=== PATIENT | male | born 1955 | race Caucasian/White ===

== ENCOUNTER 2019-06-26 12:58 | Inpatient (IN) | payer OTHER ==
--- NOTE | 2019-06-19 08:52 | HP ---
HISTORY AND PHYSICAL: DATE OF ADMISSION/SURGERY: 06/26/19 DATE OF OFFICE VISIT: 06/15/19 SURGEON: Kasie Louie MD * (DICTATED BY GENARO GARCIA) PROCEDURE: Right total hip arthroplasty. CHIEF COMPLAINT: Right hip pain. HISTORY OF PRESENT ILLNESS: Mr. Arzate is a 64-year-old gentleman with continued complaints of right knee pain. He has failed conservative treatment and elected to proceed with a right total hip arthroplasty. PAST MEDICAL HISTORY: High cholesterol, mitral valve repair, and sleep apnea. PAST SURGICAL HISTORY: Mitral valve repair, left wrist surgery, and appendectomy. CURRENT MEDICATIONS: 1. Aspirin 81 mg a day. 2. Multivitamin. 3. Pravastatin 40 mg a day. 4. Vitamin D. 5. Fish oil. 6. Vitamin C. 7. Celebrex as needed. ALLERGIES: To PENICILLIN and ERYTHROMYCIN. FAMILY HISTORY: Cancer. SOCIAL HISTORY: He is a 64-year-old gentleman, lives with his . He does not smoke or use drugs. He uses occasional alcohol. REVIEW OF SYSTEMS: A complete 14-point review of systems was reviewed with the patient, and was all negative or noncontributory. He denies history of DVT, PE , hepatitis, HIV, or anesthesia problems. PHYSICAL EXAMINATION GENERAL: He is well developed, well nourished, in no acute distress. VITAL SIGNS: He stands 70 inches tall, weighs 231 pounds. His blood pressure is 122/82, his heart rate is 72. HEENT: Normocephalic, atraumatic. NECK: Supple. No palpable lymph nodes. PULMONARY: The lungs are clear to auscultation bilaterally. CARDIO: Regular rate and rhythm. Strong S1, S2. ABDOMEN: Soft, nontender, nondistended. NEUROLOGICAL: He is alert and oriented x3. MUSCULOSKELETAL: Right lower extremity: The skin is intact. There are no open wounds or abrasions. He walks with an antalgic type gait favoring his right hip. He has 80 degrees of hip flexion reproducing groin pain. He lacks 5 degrees from neutral, has 0 degree of internal rotation, 30 degrees of external rotation. He has a 2+ dorsalis pedis pulse. He is able to dorsiflex and plantarflex and has intact sensation. ASSESSMENT AND PLAN: Mr. Arzate is a 64-year-old gentleman with end-stage osteoarthritis of the right hip. He has failed conservative treatment and elected to proceed with a right total hip arthroplasty. The surgery is scheduled for 06/26/[address] Louie discussed the risks and benefits of the surgery at today's visit and all of his questions were answered. He will follow up with Dr. Louie 2 weeks after the surgery. GENARO GARCIA [id number]/[facility] #: [id number] MTDRobert
[~2019-06-26 12:58] MED LIST: Acetaminophen TAB* 325 MG PO ONE; Buffered Lidocaine 1% SYRIN* 1 ML/SYRINGE INTRADERM ONE; Famotidine IV* 10 MG/ML 2 ML (20 mg) IV ONE; Gabapentin CAP(*) 300 MG PO ONE; Tranexamic Acid 1,000 MG in NS 0.9% 50 ML* (outpatient use) IV SCH; celeCOXIB CAP* 200 MG PO ONE
--- OUTSIDE RECORDS SUMMARY | 2019-06-26 13:02 | XMS REPORT | Continuity of Care Document ---
:1955 External Reference #:[id number] Author Name Kasie Louie M.D. 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 Onset: region and thigh Social History Type Date Description Comments Sex Unknown ETOH Use Currently consumes alcohol Tobacco Use Start: Unknown Patient has never smoked Smoking Status Reviewed: 06/15/19 Patient has never smoked Exercise Type/Frequency Exercises regularly Allergies, Adverse Reactions, Alerts Active Allergies Reaction Severity Comments Date Penicillin 09/29/2018 Erythromycin 09/29/2018 Medications Active Medications SIG Qnty Indications Ordering Provider Date Aspirin 81 Low Dose 1 by mouth every Unknown 81mg other day Che[place]abs Pravastatin Sodium take one tablet 90tabs Unknown 40mg by mouth every Tablets evening Qunol Ultra Coq10 Unknown Capsules Fish Oil 2 caps by mouth Unknown 1200mg Capsules twice daily DR Vitamin C 1 by mouth every Unknown 1000mg Tablets day Celecoxib Unknown 100mg Capsules Multivitamin Adult 1 by mouth every Unknown day Tablets Medications Administered in Office Medication SIG Qnty Indications Ordering Provider Date Depomedrol 40MG Kasie Louie M.D. 09/29/2018 Injection Immunizations Description No Information Available Vital Signs Date Vital Result Comment 06/15/2019 1:31pm Height 70 inches 5'10" Weight 231.00 lb Heart Rate 72 /min BP Systolic 122 mmHg BP Diastolic 82 mmHg Respiratory Rate 16 /min Body Temperature 97.3 F Pain Level 3 BMI (Body Mass Index) 33.1 kg/m2 10/20/2018 1:44pm Height 70 inches 5'10" Weight 232.00 lb BP Systolic 126 mmHg BP Diastolic 80 mmHg Body Temperature 99.2 F BMI (Body Mass Index) 33.3 kg/m2 Results Description No Information Available Procedures Description No Information Available Medical Devices Description No Information Available Encounters Description No Information Available Assessments Date Code Description Provider 06/15/2019 M25.551 Pain in right hip Kasie Louie M.D. 06/15/2019 M16.11 Unilateral primary osteoarthritis, right hip Kasie Louie M.D. 05/14/2019 M25.551 Pain in right hip Kasie Louie M.D. 05/14/2019 M16.11 Unilateral primary osteoarthritis, right hip Kasie Louie M.D. 05/11/2019 M25.551 Pain in right hip Kasie Louie M.D. 05/11/2019 M16.11 Unilateral primary osteoarthritis, right hip Kasie Louie M.D. Plan of Treatment Future Appointment(s):07/09/2019 2:45 pm - Kasie Louie M.D. at [facility] at Vmnyvp5506/26/2019 1:30 pm - Khris Bay PA-C at [facility] at Hjkzez3106/26/2019 1:30 pm - GENARO Saleem at [facility] at Vwpzxo0406/26/2019 1:30 pm - Kasie Louie M.D. at [facility] at Axtkuq2106/15/2019 - Kasie Louie M.D.M25.551 Pain in right hipFollow up:Follow up: 2 weeks after xrdfftiU04.11 Unilateral primary osteoarthritis, right hip Functional Status Description No Information Available Mental Status Description No Information Available Referrals Description No Information Available
--- OUTSIDE RECORDS SUMMARY | 2019-06-26 13:02 | XMS REPORT | Continuity of Care Document ---
:1955 External Reference #:[id number] Author Name Ursula Moreno MD Address [address] [place] [id number] Problems Active Problems Provider Date Pure hypercholesterolemia Onset: 07/14/2007 Obstructive sleep apnea syndrome Ursula Moreno MD Onset: 09/29/2010 Mixed hyperlipidemia Ursula Moreno MD Onset: 03/14/2017 Social History Type Date Description Comments Sex Unknown Tobacco Use Start: Unknown End: Current Pipe Smoker, Smokes 5 QUIT!! Unknown Pipes Daily ETOH Use Occasionally consumes alcohol Recreational Drug Use Denies Drug Use Tobacco Use Start: Unknown End: Patient is a former smoker Unknown Smoking Status Reviewed: 06/11/19 Patient is a former smoker Allergies, Adverse Reactions, Alerts Active Allergies Reaction Severity Comments Date Erythromycin 02/10/2006 PCN 02/10/2006 Medications Active Medications SIG Qnty Indications Ordering Provider Date Pravastatin Sodium take 1 tablet by 30tabs E78.2 Ursula Moreno 2018 40mg mouth at bedtime MD Elena Tablets Baclofen 1-2 every night 30tabs M25.512 Ursula Moreno 04/17/2019 10mg Tablets at bedtime as MD Elena needed muscle spasm Celecoxib take one capsule 60caps M16.11 Ursula Moreno 10/06/2018 100mg by mouth twice a MMD Capsules day as needed Shingrix 2 shot series 2units Z00.00 Ursula Moreno 10/06/2018 50mcg/0.5ML MD Elena Suspension Rec Co-Enzyme Q-10 1 po qd E78.2 Ursula Moreno 12/29/2015 100mg MD Elena Capsules Cpap dx: ashwini G47.33 Ursula Moreno 04/20/2010 9CM MD Elena Vitamin D 1 po qd 90caps E55.9 Ursula Moreno 09/16/2009 1000Unit MD Elena Capsules Aspirin 1 PO qod E78.2 Tiffanie Ursula 01/23/2007 81mg Tablets MD Elena History Medications Livalo 1 by mouth 30tabs E78.2 [facility] 02/06/2019 - 2mg Tablets every day MD Elena 02/06/2019 Pravastatin Sodium take 1 tablet 30tabs E78.2 [facility] 02/06/2019 - 20mg by mouth at MD Elena 04/17/2019 Tablets bedtime. Immunizations CPT Code Status Date Vaccine Lot # [id number] Given 06/11/2019 Influenza Vac, Quadrivalent, Split, 0.5mL Dosage, [id number] Im Use 03263 Given 07/06/2018 Influenza Vac, Quadrivalent, Split, 0.5mL Dosage, Im Use 14649 Given 07/15/2017 Influenza Vac, Quadrivalent, Split, 0.5mL Dosage, [id number] Im Use 86548 Given 07/09/2016 Influenza Vac, Quadrivalent, Split, 0.5mL Dosage, [id number] Im Use 35458 Given 04/06/2016 Tdap (Adacel) Ages 7 And Above Only [id number] 07262 Given 10/14/2015 Influenza Vac, Quadrivalent, Split, 0.5mL Dosage, [id number] Im Use Q2038 Given 09/11/2012 Fluzone Trivalent Immunization [id number] Q2038 Given 10/01/2011 Fluzone Trivalent Immunization [id number] 06677 Given 09/29/2010 Pneumococcal 23 Immunization Adult Or [id number] Immunosuppressed Patient 51094 Given 07/14/2007 Afluria Or Fluvirin Flu Vac Intramuscular [id number] 34009 Given 07/25/2006 Afluria Or Fluvirin Flu Vac Intramuscular [id number] 05839 Given 02/10/2006 Tetanus And Diptheria Toxoid 7 Years And Older [id number] Preserv Free 23156 Given Unknown Influenza Vac, Quadrivalent, Split, 0.5mL Dosage, Im Use Vital Signs Date Vital Result Comment 06/11/2019 1:44pm Weight 234.00 lb Heart Rate 76 /min BP Systolic 124 mmHg BP Diastolic 60 mmHg Height 70 inches 5'10" BMI (Body Mass Index) 33.6 kg/m2 04/17/2019 9:28am Weight 232.00 lb Heart Rate 64 /min BP Systolic 124 mmHg BP Diastolic 66 mmHg Height 70 inches 5'10" BMI (Body Mass Index) 33.3 kg/m2 Results Test Date Facility Test Result H/L Range Note Laboratory test 04/09/2019 [facility] Vitamin D 25 40 ng/mL 30-100 1 finding Hydroxy Magnesium 2.2 mg/dL 1.5-2.7 Comprehensive Met Panel-[facility] 04/09/2019 [facility] Sodium 142 mmol/L 135- 146 2 Potassium 5.0 mmol/L 3.5-5.2 Chloride# 106 mmol/L 97-110 3 Carbon Dioxide 26 mmol/L 24-34 Calcium 9.7 mg/dL 8.5-10.5 4 Glucose 82 mg/dL 70-105 BUN 20 mg/dL 6-26 Creatinine 1.0 mg/dL 0.5-1.4 Total Protein 6.6 g/dL 6.0-8.0 Albumin 4.1 g/dL 3.6-4.9 Globulin 2.5 g/dL 2.0-3.5 A/G Ratio 1.6 Ratio 1.0-2.2 Total Bilirubin 0.7 mg/dL 0.1-1.3 Alkaline Phosphatase 53 U/L 24-140 Alt 20 U/L 3-42 Ast 16 U/L 8-42 Anion Gap 10 mmol/L 5-15 5 Female Egfr 57 Low >60 6 Male Egfr 76 >60 7 Lipid 04/09/2019 [facility] Cholesterol 232 mg/dL High 50-199 Triglycerides 328 mg/dL High 30-200 HDL 43 mg/dL 29-71 8 Chol/ HDL Ratio 5.4 ratio 4.0-6.7 VLDL 66 mg/dL High 2-29 LDL (Calc) 124 mg/dL High 20-99 9 CBC with Auto Diff-[facility] 04/09/2019 [facility] WBC 5.3 K/uL 4.1-11.0 RBC 4.80 M/uL 4.60-6.10 Hemoglobin 15.6 gm/dL 13.5-18.0 Hematocrit 45.3 % 41.0-53.0 MCV 94.2 fL 80.0-97.0 MCH 32.4 pg High 27.0-32.0 MCHC 34.4 g/dL 32.0-36.0 RDW 12.9 % 11.5-14.5 PLT Count 129 K/ul Low 140-400 MPV 9.9 FL 7.1-10.7 Neutrophil 58.2 % 35.0-75.0 Lymphocyte 25.6 % 16.0-52.0 Monocyte 11.7 % High 2.0-10.0 Eosinophil 4.0 % 0.0-5.0 Basophil 0.5 % 0.0-4.0 Abs Neutrophils 3.1 K/uL 2.1-8.0 Abs Lymphocytes 1.4 K/uL 0.8-5.5 Abs Monocytes 0.6 K/uL 0.1-1.0 Abs Eosinophils 0.2 K/uL 0.0-0.5 Abs Basophils 0.0 K/uL 0.0-0.3 Laboratory test finding 04/09/2019 [facility] TSH 2.72 uIU/mL 0.35-4.94 Lipid Treatment 02/01/2019 [facility] Cholesterol 234 mg/dL High 50-199 Triglycerides 172 mg/dL 30-200 HDL 45 mg/dL 29- 10 Chol/ HDL Ratio 5.2 ratio 4.0-6.7 VLDL 34 mg/dL High 2-29 LDL (Calc) 154 mg/dL High 20-99 11 Alt 20 U/L 3-42 Ast 20 U/L 8-42 1 Clinical Guidelines for recommended serum 25(OH)Vitamin D Deficient at less than 20 ng/mL Insufficient at 20 to <30 ng/mL Sufficient at 30-100 ng/mL Toxicity at greater than 100 ng/mL 2 Updated reference range on new analyzer 3 Updated reference range on new analyzer 4 Updated reference range 01-03-2019 5 Updated Reference Range 6 Concerning GFR Guidelines for Americans: Normal function or mild renal disease, if clinically at risk: >/= 60 mL/min Moderately decreased: 30-59 Severely decreased: 15-29 Renal failure: <15 There is reduced accuracy above 60ml/min/1.73 m squared, but the numeric value may be clinically useful in the near 60 range 7 Concerning GFR Guidelines: Normal function or mild renal disease, if clinically at risk: >/= 60 mL/min Moderately decreased: 30-59 Severely decreased: 15-29 Renal failure: <15 There is reduced accuracy above 60ml/min/1.73 m squared, but the numeric value may be clinically useful in the near 60 range Glomerular Filtration Rate (GFR) is estimated based on the CKD-EPI equation, which assumes a steady state for creatinine as recommended by the National Kidney Disease Education Program in conjunction with the National Institutes of Health and the National Kidney Foundation. Clinical conditions in which it may be necessary to measure GFR by using clearance methods include extremes of age and body size, severe malnutrition or obesity, diseases of skeletal muscle, paraplegia or quadriplegia, vegetarian diet, rapidly changing kidney function, and calculation of the dose of potentially toxic drugs that are excreted by the kidneys. 8 Per NCEP ATP III Guidelines: Results lower than 40 mg/dL are suggestive of increased risk for coronary artery disease. Results > or = to 60 mg/dL are considered a negative risk factor. 9 Per NCEP ATP III Guidelines: Normal Population <130 Patients with medical conditions: CHD/DM Optimal: <100 Borderline high: 130-159 High: 160-189 Very high: >189 10 Per NCEP ATP III Guidelines: Results lower than 40 mg/dL are suggestive of increased risk for coronary artery disease. Results > or = to 60 mg/dL are considered a negative risk factor. 11 Per NCEP ATP III Guidelines: Normal Population <130 Patients with medical conditions: CHD/DM Optimal: <100 Borderline high: 130-159 High: 160-189 Very high: >189 Procedures Date Code Description Status 11/14/2012 [id number] Colonoscopy Completed Medical Devices Description No Information Available Encounters Type Date Location Provider Dx Diagnosis Office Visit 04/17/2019 Ursula Lomas E66.9 Obesity, unspecified 9:15a MD Elena E78.2 Mixed hyperlipidemia G47.33 Obstructive sleep apnea (adult) (pediatric) R53.83 Other fatigue E55.9 Vitamin D deficiency, unspecified M16.11 Unilateral primary osteoarthritis, RIGHT hip M25.512 Pain in LEFT shoulder Z68.33 Body mass index (BMI) 33.0-33.9, adult Office Visit 02/06/2019 8:15a Ursula Lomas E66.9 Obesity, unspecified MD Elena E78.2 Mixed hyperlipidemia G47.33 Obstructive sleep apnea (adult) (pediatric) E55.9 Vitamin D deficiency, unspecified I34.0 Nonrheumatic mitral (valve) insufficiency M54.16 Radiculopathy, lumbar region M16.11 Unilateral primary osteoarthritis, RIGHT hip Z79.82 skilled nursing (current) use of aspirin G47.62 Sleep related leg cramps R53.83 Other fatigue Z68.33 Body mass index (BMI) 33.0-33.9, adult Assessments Date Code Description Provider 06/11/2019 E66.9 Obesity, unspecified Ursula Moreno MD 06/11/2019 Z01.818 Encounter for other preprocedural Ursula Moreno MD examination 06/11/2019 G47.33 Obstructive sleep apnea (adult) (pediatric) Ursula Moreno MD 06/11/2019 E78.2 Mixed hyperlipidemia Ursula Moreno MD 06/11/2019 Z68.33 Body mass index (BMI) 33.0-33.9, adult Ursula Moreno MD 04/17/2019 E66.9 Obesity, unspecified Ursula Moreno MD 04/17/2019 E78.2 Mixed hyperlipidemia Ursula Moreno MD 04/17/2019 G47.33 Obstructive sleep apnea (adult) (pediatric) Ursula Moreno MD 04/17/2019 R53.83 Other fatigue Ursula Moreno MD 04/17/2019 E55.9 Vitamin D deficiency, unspecified Ursula Moreno MD 04/17/2019 M16.11 Unilateral primary osteoarthritis, RIGHT Ursula Moreno MD hip 04/17/2019 M25.512 Pain in LEFT shoulder Ursula Moreno MD 04/17/2019 Z68.33 Body mass index (BMI) 33.0-33.9, adult Ursula Moreno MD 04/09/2019 E78.2 Mixed hyperlipidemia Ursula Moreno MD 04/09/2019 E78.2 Mixed hyperlipidemia [facility] 04/09/2019 E66.9 Obesity, unspecified Ursula Moreno MD 04/09/2019 E66.9 Obesity, unspecified [facility] 04/09/2019 I34.0 Nonrheumatic mitral (valve) insufficiency Ursula Moreno MD 04/09/2019 I34.0 Nonrheumatic mitral (valve) insufficiency [facility] 04/09/2019 R53.83 Other fatigue [facility] Schedule [place] 04/09/2019 E78.2 Mixed hyperlipidemia [facility] 04/09/2019 E66.9 Obesity, unspecified [facility] 04/09/2019 I34.0 Nonrheumatic mitral (valve) insufficiency [facility] 04/09/2019 R53.83 Other fatigue [facility] 02/06/2019 E66.9 Obesity, unspecified Ursula Moreno MD 02/06/2019 E78.2 Mixed hyperlipidemia Ursula Moreno MD 02/06/2019 G47.33 Obstructive sleep apnea (adult) (pediatric) Ursula Moreno MD 02/06/2019 E55.9 Vitamin D deficiency, unspecified Ursula Moreno MD 02/06/2019 I34.0 Nonrheumatic mitral (valve) insufficiency Ursula Moreno MD 02/06/2019 M54.16 Radiculopathy, lumbar region Ursula Moreno MD 02/06/2019 M16.11 Unilateral primary osteoarthritis, RIGHT Ursula Moreno MD hip 02/06/2019 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 Ursula Moreno MD 02/06/2019 G47.62 Sleep related leg cramps Ursula Moreno MD 02/06/2019 R53.83 Other fatigue Ursula Moreno MD 02/06/2019 Z68.33 Body mass index (BMI) 33.0-33.9, adult Ursula Moreno MD 02/01/2019 E78.2 Mixed hyperlipidemia Ursula Moreno MD 02/01/2019 E78.2 Mixed hyperlipidemia [facility] Schedule [place] 02/01/2019 E78.2 Mixed hyperlipidemia [facility] Plan of Treatment Future Appointment(s):10/09/2019 8:30 am - Ursula Moreno MD at [id number]/18 8:30 am - Nurses Schedule [place] at Szpgbe9206/11/2019 - Ursula Moreno MDE66.9 Obesity, aqmzwzxuawiV76.818 Encounter for other preprocedural amuanocalgpN35.33 Obstructive sleep apnea (adult) (pediatric)E78.2 Mixed stoyvqcoarhgksL19.33 Body mass index (BMI) 33.0-33.9, adult Functional Status Description No Information Available Mental Status Description No Information Available Referrals Description No Information Available
--- OUTSIDE RECORDS SUMMARY | 2019-06-26 13:02 | XMS REPORT | Continuity of Care Document ---
:1955 External Reference #:[id number] Author Name Janette Dayron Jha, CREDIT VERIFICATION CLERK Address [address] [place] [id number] Problems Active Problems Provider Date Obstructive sleep apnea syndrome Jayme Murphy MD Onset: 05/03/2011 Social History Type Date Description Comments Sex Unknown Tobacco Use Start: Unknown Never Smoked Cigarettes Tobacco Use Start: Unknown End: Unknown Former Cigar Smoker 3 Daily Cigars Quit 5 Years Ago Pipe Quit 6 Years Ago Smokeless Tobacco Never Used Smokeless Tobacco ETOH Use Denies alcohol use Allergies, Adverse Reactions, Alerts Active Allergies Reaction Severity Comments Date Erythromycin 10/19/2010 Penicillin 10/19/2010 Medications Active Medications SIG Qnty Indications Ordering Provider Date Fish Oil 1 po qd Unknown 1000mg Capsules Vitamin D daily Unknown 2000Unit Capsules Vitamin C Unknown Capsules Aspirin 1 po Every other Unknown 81mg Tablets DR day Multi-Day Vitamins once daily, Unknown Tablets Qunol Unknown Coq10/Ubiquinol/Ibrahima 100mg Capsules Pravastatin Sodium 1 by mouth every Unknown 40mg day Tablets Celebrex take 1 by mouth Unknown 100mg Capsules daily as needed Immunizations Description No Information Available Vital Signs Date Vital Result Comment 06/01/2019 9:04am Weight 231.25 lb Weight 104.895 kg BMI (Body Mass Index) 33.2 kg/m2 BP Systolic 110 mmHg BP Diastolic 68 mmHg Heart Rate 51 /min Height 70 inches 5'10" Height in cm's 177.8 cm O2 % [facility] Oximetry 97 % 12/13/2018 9:05am Weight 232.50 lb Weight 105.462 kg BMI (Body Mass Index) 33.4 kg/m2 BP Systolic 138 mmHg BP Diastolic 76 mmHg Heart Rate 51 /min Respiratory Rate 12 /min Height 70 inches 5'10" Height in cm's 177.8 cm O2 % BldC Oximetry 99 % Results Description No Information Available Procedures Description No Information Available Medical Devices Description No Information Available Encounters Type Date Location Provider Dx Diagnosis Office Visit 06/01/2019 [facility] Janette Jha, G47.33 Obstructive sleep 9:00a & Sleep Medicine CREDIT VERIFICATION CLERK apnea (adult) (pediatric) Office Visit 12/13/2018 [facility] Janette Jha, G47.33 Obstructive sleep 9:00a & Sleep Medicine CREDIT VERIFICATION CLERK apnea (adult) (pediatric) Assessments Date Code Description Provider 06/01/2019 G47.33 Obstructive sleep apnea (adult) (pediatric) AMAURY Yeung 12/13/2018 G47.33 Obstructive sleep apnea (adult) (pediatric) AMAURY Yeung Plan of Treatment Future Appointment(s):12/05/2019 9:00 am - AMAURY Yeung at [facility] Functional Status Description No Information Available Mental Status Description No Information Available Referrals Description No Information Available
[2019-06-26] MEDS ORDERED: Gabapentin CAP(*) 300 MG ONE (13:10)
[2019-06-26] MEDS ORDERED: Acetaminophen TAB* 325 MG ONE (13:10)
[2019-06-26] MEDS ORDERED: Clindamycin 900 MG/D5W BAG(*) 900 MG/50 ML BAG IVPB ONE (13:11)
[2019-06-26] MEDS ORDERED: Famotidine IV* 10 MG/ML 2 ML (20 mg) ONE (13:11)
[2019-06-26] MEDS ORDERED: celeCOXIB CAP* 200 MG ONE (13:11)
[2019-06-26] MEDS ORDERED: Ondansetron INJ* 2 MG/ML VIAL ONE (14:02)
[2019-06-26] MEDS ORDERED: Dexamethasone IV* 4 MG/ML 1 ML (4 MG) ONE (14:02)
[2019-06-26] MEDS ORDERED: Lidocaine 2% PF * 5 ML VIAL ONE ×2 (14:02→15:18)
[2019-06-26] MEDS ORDERED: fentaNYL* 50 MCG/ML 2 ML VIAL (100 MCG VIAL) ONE ×3 (14:02→20:04)
[2019-06-26] MEDS ORDERED: Propofol* 10 MG/ML 20 ML BTL ONE (14:02)
[2019-06-26] MEDS ORDERED: Midazolam* 1 MG/ML 10 ML VIAL (10 MG) ONE (14:02)
[2019-06-26] MEDS: Lactated Ringers 1000 ML Bag* 1,000 ML IV SCH ×2 (14:08→23:30)
[2019-06-26] MEDS ORDERED: Ropivacaine 0.2% * 2 MG/ML VIAL ONE (15:18)
[2019-06-26] MEDS ORDERED: ROPIVACAINE 5 MG/ML 30 ML BTL (0.5%) ONE ×2 (15:19→18:09)
[2019-06-26] MEDS ORDERED: Cisatracurium* 2 MG/ML MDV 5 ML ONE (16:14)
[2019-06-26] MEDS ORDERED: KETAMINE HCL* 50 MG/ML 10 ML VIAL ONE (16:15)
[2019-06-26] MEDS ORDERED: EPHEDrine (Pressors)* 50 MG/ML VIAL ONE (16:25)
[2019-06-26] MEDS ORDERED: fentaNYL* 50 MCG/ML 5 ML VIAL (250 MCG VIAL) ONE (16:59)
[2019-06-26] MEDS ORDERED: Ondansetron INJ* 2 MG/ML VIAL IV PRN ×2 (18:00→18:52)
[2019-06-26] MEDS ORDERED: Naloxone* 0.4 MG/ML 1 ML VIAL IV PRN (18:00)
[2019-06-26] MEDS ORDERED: diPHENhydraMINE IV* 50 MG/ML 1 ml VIAL (BENADRYL) IV PRN (18:52)
[2019-06-26] MEDS ORDERED: Magnesium Hydroxide LIQ* 30 ML UDC PO PRN (18:52)
[2019-06-26] MEDS ORDERED: diPHENhydraMINE PO* 25 MG PO PRN (18:52)
[2019-06-26] MEDS ORDERED: Morphine INJ* 2 MG/ML 1 ML SYRINGE (TWO MG - NEW SYRINGE VERSION) IV PRN (18:52)
[2019-06-26] MEDS ORDERED: Cyclobenzaprine TAB* 10 MG PO PRN (18:52)
[2019-06-26] MEDS ORDERED: Ondansetron ODT TAB* 4 MG PO PRN (18:52)
[2019-06-26] MEDS ORDERED: oxyCODONE/Acetamin 5/325 MG* TAB PO PRN (18:52)
[2019-06-26] MEDS ORDERED: Lactated Ringers 1000 ML Bag* 1,000 ML IV SCH (19:00)
[2019-06-26] MEDS: fentaNYL* 50 MCG/ML 2 ML VIAL (100 MCG VIAL) IV PRN ×3 (19:07→20:15)
--- NOTE | 2019-06-26 22:08 | OP ---
Operative Report - Blank - Operative Report Date of Operation: 06/26/19 Note: MELITON RICE 1955 Date Of Surgery: 06/26/19 Kasie Louie MD Data Manager: Alaina LAM did help throughout the procedure with preparation of the hip, wound retraction, manipulation of the hip, and wound closure. Anesthesiologist: Rocio Morfin MD Anesthesia Type: General Preoperative Diagnosis: Right severe degenerative osteoarthritis of the hip Postoperative Diagnosis: As above Procedure Performed: Right Total Hip Arthroplasty Complications: None Specimen: Femoral head and acetabular reamings sent to pathology. Hardware used: This is uncemented Bl[place]ard total hip arthroplasty hardware for the femur a size 6 accolade II with 127 neck angle femoral component, for the acetabulum a size 56F trident II tritanium cluster hole shell, a single 20mm screw, for the insert a size 40F trident X3 polyethylene insert, and for the femoral head a size 40 + 4 ceramic V40 femoral head. Brief history/Indication: MELITON RICE was known in clinic and had a history of severe right hip pain. He failed conservative treatment with anti- inflammatories, pain pills, intra-articular injections and physical therapy. He elected to undergo right total hip arthroplasty due to continued pain and decreased quality of life. Radiographs showed severe end stage osteoarthritis of the hip with bone on bone contact. Informed consent was obtained from the patient. He understood the risks of surgery included but were not limited to: bleeding, infection, damage to nearby structures, intraoperative fracture, nerve palsy, failure of the hardware, early loosening, stiffness or loss of motion, dislocation, leg length discrepancy, anesthesia complications, stroke, heart attack, blood clot and . He wished to proceed. Intra-Operative findings: Intraoperatively the patient was noted to have severe loss of cartilage of the acetabulum and femoral head. Description of the Procedure: MELITON RICE was identified in the preanesthesia unit. His right hip was marked as the correct operative side. Informed consent was signed and placed in the chart. The patient was taken to the operating room and placed under anesthesia without complication. A poole catheter was placed. The patient was placed on the peg board with all bony prominences well padded. The right lower extremity was prepped and draped in the usual sterile fashion. Preoperative time-out was made to correctly identify the patient, side and site. Appropriate intraoperative antibiotics were given within one hour of incision. A standard posterior incision was made and carried sharply down to the lateral fascia. A new 10 blade was used to make an incision in the fascia in line with the skin incision. A charnley retractor was placed. The piriformis and conjoined tendons were identified and elevated off the posterolateral femur using electrocautery. These were tagged with number 5 Ethibond. Next electrocautery was used to make a posterolateral capsular flap and this was tagged with number 5 Ethibonds. The hip was carefully dislocated. Lesser trochanter to the center of the femoral head was measured at 60 mm. The oscillating saw was used to make the femoral neck cut. The femoral head was carefully removed. The femur was retracted anteriorly and the acetabular retractors were placed. Long-handled knife was used to sharply remove any remaining labrum from the acetabular rim. The acetabulum was sequentially reamed up to a size 56. A bleeding subchondral bone bed was obtained. A trial liner was placed and had excellent fit and stability. A 56F cup was placed and had excellent stability with appropriate anteversion and abduction angle. A size 40 F polyethylene liner was impacted into the acetabular shell. The liner was checked for stability and was stable. Next attention was turned to preparation of the femoral canal. A canal finder was used to enter the proximal femur. The femoral canal was sequentially broached up to a size 6 femoral broach trial. A trial neck and 40 + 4 trial femoral head was chosen. Lesser trochanter to center of the femoral head measurement was satisfactory. The hip was reduced and taken through a range of motion. The hip was stable in all positions with good soft tissue tension and appropriate leg lengths. The hip was dislocated and all trials were removed. The final implant chosen was a accolade II size 6 with 127 neck angle. This stem was impacted into the femoral canal without difficulty. The stem was stable with appropriate anteversion. The femoral head chosen was a 40 + 4 ceramic head. The head was impacted onto the femoral neck without difficulty. The final lesser trochanter to center of the femoral head measurement was satisfactory. The hip was reduced and taken through a range of motion. The hip was stable in all positions with good soft tissue tension and appropriate leg lengths. The hip was copiously irrigated with sterile saline. The previously tagged capsule and tendons were repaired to the posterolateral femur through two trochanteric drill holes. The lateral fascia layer was closed using number 1 vicryls. The rest of the incision was closed in a layered fashion using 0 and 2-0 vicryls. The skin was closed using 3-0 monocryl suture and Dermabond. Sterile adaptic, 4x4s and paper tape was used to cover the incision. The patients anesthesia was reversed without difficulty. He was taken to the PACU in stable condition. Intended weight-bearing will be as tolerated with posterior hip precautions.
[2019-06-26 22:38] LABS: ABS Lymphocytes 0.5 10^3/ul (1.0-4.8); ABS Monocytes 0.2 10^3/ul (0-0.8); ABS Neutrophils 9.9 10^3/ul (1.5-7.7); Eosinophil % 0.1 %; Hematocrit 42 % (42-52); Hemoglobin 14.6 g/dL (14.0-18.0); Lymphocyte % 4.7 %; Mean Corpuscular HGB Conc 35 g/dL (31-36); Mean Corpuscular Hemoglobin 32 pg (27-31); Mean Corpuscular Volume 91 fL (80-94); Mean Platelet Volume 9.1 fL (7.4-10.4); Platelet Count 122 10^3/uL (150-450); Red Blood Count 4.56 10^6 /uL (4.18-5.48); Red Cell Distribution Width 13 % (10-15); White Blood Count 10.6 10^3/uL (3.5-10.8)
[2019-06-26 22:51] LABS: Calcium 8.8 mg/dL (8.6-10.3); EGFR African American 105.8 (>60); EGFR Non-African American 87.5 (>60); Potassium 3.4 mmol/L (3.5-5.0)
[2019-06-26] MEDS: Docusate CAP* 100 MG PO SCH (23:44)
[2019-06-26] MEDS: Magnesium Hydroxide LIQ* 30 ML UDC PO SCH (23:44)
[2019-06-26] MEDS: Clindamycin 600 MG/D5W BAG(*) 600 MG/50 ML BAG IV SCH (23:45)
--- NOTE | 2019-06-26 23:49 | CONS ---
CC: Dr. Kaise Louie; Dr. Ursula Moreno * CONSULTATION REPORT: DATE OF CONSULT: 06/26/19 REFERRING PHYSICIAN: Dr. Morfin. CONSULTING PHYSICIAN: Dr. Wagner Worley. REASON FOR CONSULT: Apneic episodes. HISTORY OF PRESENT ILLNESS: This is a 64-year-old male with past medical history of high cholesterol, mitral valve repair, obstructive sleep apnea, on CPAP at home; came in with right total hip arthroplasty, postoperatively was noted to have apneic episodes after he received a total of 125 mcg of fentanyl over a course of an hour and a half and his pulse ox was dropped to 40% saturation. His oxygen requirement increased to 6 L nasal cannula on top of the CPAP that was running. By the time I saw the patient, his pulse ox improved quite significantly with the nasal cannula and the oxygen requirement on the nasal cannula dropped down to 4 L. He was alert and oriented, denied any complaints except for the surgical site pain, which he rates as a 7/10, but he states that it is much better than what it was previously. He otherwise denies any nausea or vomiting, any shortness of breath, any chest pain. Denies any dizziness or lightheadedness. PAST MEDICAL HISTORY: As mentioned, dyslipidemia, mitral valve repair, obstructive sleep apnea, and osteoarthritis. PAST SURGICAL HISTORY: Mitral valve repair done via robotic surgery, this was a repair and not a replacement, which was repair of his [place] valve; left wrist surgery after a fall; an appendectomy and today's surgery was just a right total hip arthroplasty. HOME MEDICATIONS: The patient is on: 1. CoQ10 of 100 mg every morning. 2. Pravastatin 40 mg every morning. 3. [place]-3 fatty acids 2 tablets every morning. 4. Multivitamin 1 tablet every morning. 5. Aspirin 81 mg oral daily, however, he is held for the last 1 week. 6. Ascorbic acid 1000 mcg oral daily every morning. ALLERGIES: The patient is documented to have allergies to AZITHROMYCIN and PENICILLIN. 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 Does not smoke or use any drugs. He uses occasional alcohol and is otherwise full code. REVIEW OF SYSTEMS: A 14-point review of systems did not reveal any information other than what is stated in the HPI. PHYSICAL EXAM: Vital Signs: Postoperatively, his oxygen saturation was noted to be 100% on 4 L nasal cannula along with CPAP. BP was noted to be 136/79, heart rate 56, temperature documented at max temperature of 97.9. In general, the patient is awake, alert, and oriented x3; does not appear to be in any acute distress. Head and Neck Examination: Atraumatic and normocephalic. Oral mucosa was dry. Neck: Supple. No jugular venous distention. Heart Examination: S1 and S2. Regular rate and rhythm with a systolic murmur appreciated. Lungs: Clear to auscultation bilaterally. No wheezes, rhonchi, or rales. Abdomen: Soft, nontender, and nondistended. Extremities: No cyanosis, clubbing, or edema. DIAGNOSTIC STUDIES/LAB DATA: The only lab available is a stat ABG, which shows pH of 7.44, pCO2 of 34, pO2 of 74, and oxygen saturation of 96% on CPAP with 4 L nasal cannula. Imaging results show hip x-ray, which shows the new arthroplasty in place. Official read by radiology is still pending. IMPRESSION: This is a 64-year-old male with past medical history of obstructive sleep apnea, was noted to be having apneic episode post anesthesia and after he received multiple opiates, but now he is back to his baseline, much more alert. His oxygen requirement is going down and his pulse ox has been stable and no longer having any apneic episodes. ASSESSMENT: 1. Apneic episode likely secondary to anesthesia and multiple opiates postoperatively. For now I will discontinue the morphine and continue rest of his pain medications as needed including Neurontin, Tylenol and Percocet and we will also discontinue the fentanyl that was ordered. The patient otherwise can be monitored on the surgical floor with a continuous pulse oximetry. I have updated surgeon regarding my recommendations. If the patient has another apneic episode or any other complications tonight, we will be considering to transfer the patient into the ICU, but for now he is stable. 2. History of dyslipidemia. Continue his home medication. 3. DVT prophylaxis, on SCDs per surgeon. [id number]/[facility] #: [id number] MTDD
[2019-06-27] MEDS: Acetaminophen TAB* 325 MG PO SCH ×4 (00:36→23:40)
[2019-06-27 05:10] LABS: Hematocrit 39 % (42-52); Hemoglobin 13.9 g/dL (14.0-18.0); Mean Platelet Volume 9.3 fL (7.4-10.4); Platelet Count 124 10^3/uL (150-450)
[2019-06-27 05:30] LABS: BUN/Creatinine Ratio 19.7 (8-20); Calcium 8.7 mg/dL (8.6-10.3); EGFR African American 125.3 (>60); EGFR Non-African American 103.6 (>60); Potassium 4.2 mmol/L (3.5-5.0)
[2019-06-27] MEDS: Clindamycin 600 MG/D5W BAG(*) 600 MG/50 ML BAG IV SCH ×2 (08:24→16:43)
[2019-06-27] MEDS: COENZYME Q10 100 MG PO SCH (08:26)
[2019-06-27] MEDS: Docusate CAP* 100 MG PO SCH ×2 (08:27→21:14)
[2019-06-27] MEDS: Vitamin THERAPEUTIC TAB PO SCH (08:27)
[2019-06-27] MEDS: Magnesium Hydroxide LIQ* 30 ML UDC PO SCH ×2 (08:27→21:15)
[2019-06-27] MEDS: oxyCODONE/Acetamin 5/325 MG* TAB PO PRN ×4 (08:27→23:41)
[2019-06-27] MEDS: Atorvastatin* 10 MG TAB PO SCH (08:27)
--- NOTE | 2019-06-27 09:21 | PN ---
Progress Note - Progress Note Date of Service: 06/27/19 SOAP: Subjective: POD #1 Right SÁNCHEZ. Doing well, pain controlled. Has not been out of bed yet, had some desats in PACU prior to arrival on [facility]SU due to AMAN, but improved. Denies CP/ SOB, f/c, n/v. Objective: Vital Signs: Temp Pulse Resp BP Pulse Ox 98.5 F 58 18 111/57 98 06/27/19 07:37 06/27/19 07:37 06/27/19 08:27 06/27/19 07:37 06/27/19 07:37 Gen: A&Ox3, NAD at rest laying in bed Right hip: Dressing C/D/I. Thigh soft, NT. +f/e at ankle and MTPs. N/V intact Labs: Laboratory Results - last 24 hr 06/26/19 06/26/19 06/26/19 22:12 22:30 22:30 WBC 10.6 RBC 4.56 Hgb 14.6 Hct 42 MCV 91 MCH 32 H MCHC 35 RDW 13 Plt Count 122 L MPV 9.1 Neut % (Auto) 93.3 Lymph % (Auto) 4.7 [place] % (Auto) 1.8 Eos % (Auto) 0.1 Baso % (Auto) 0.1 Absolute Neuts (auto) 9.9 H Absolute Lymphs (auto) 0.5 L Absolute Monos (auto) 0.2 Absolute Eos (auto) 0.0 Absolute Basos (auto) 0.0 Absolute Nucleated RBC 0.0 Nucleated RBC % 0.0 Patient Temperature Not Reportable ABG pH 7.44 ABG pH (Temp Correct) Not Reportable ABG pCO2 34 L ABG pCO2 (Temp Corrct Not Reportable ABG pO2 74 L ABG pO2 (Temp Correct Not Reportable ABG HCO3 24.5 ABG O2 Saturation 96.2 ABG Base Excess -0.5 Respiration Rate Not Reportable O2 Delivery Device cpap Ventilator Type Not Reportable Vent Mode Not Reportable FiO2 Not Reportable Inspiratory Time Not Reportable PEEP Not Reportable Pressure Support Not Reportable Pressure Control Not Reportable EPAP Not Reportable IPAP Not Reportable BiPAP Not Reportable Sodium 135 Potassium 3.4 L Chloride 105 Carbon Dioxide 24 Anion Gap 6 BUN 15 Creatinine 0.88 Est GFR ( Amer) 105.8 Est GFR (Non-Af Amer) 87.5 BUN/Creatinine Ratio 17.0 Glucose 130 H Calcium 8.8 06/27/19 06/27/19 04:48 04:48 WBC RBC Hgb 13.9 L Hct 39 L MCV MCH MCHC RDW Plt Count 124 L MPV 9.3 Neut % (Auto) Lymph % (Auto) [place] % (Auto) Eos % (Auto) Baso % (Auto) Absolute Neuts (auto) Absolute Lymphs (auto) Absolute Monos (auto) Absolute Eos (auto) Absolute Basos (auto) Absolute Nucleated RBC Nucleated RBC % Patient Temperature ABG pH ABG pH (Temp Correct) ABG pCO2 ABG pCO2 (Temp Corrct ABG pO2 ABG pO2 (Temp Correct ABG HCO3 ABG O2 Saturation ABG Base Excess Respiration Rate O2 Delivery Device Ventilator Type Vent Mode FiO2 Inspiratory Time PEEP Pressure Support Pressure Control EPAP IPAP BiPAP Sodium 135 Potassium 4.2 Chloride 106 Carbon Dioxide 23 Anion Gap 6 BUN 15 Creatinine 0.76 Est GFR ( Amer) 125.3 Est GFR (Non-Af Amer) 103.6 BUN/Creatinine Ratio 19.7 Glucose 143 H Calcium 8.7 Assessment: POD #1 Right SÁNCHEZ Plan: PT with posterior hip precautions Cont to monitor O2 sats Cont eliquis for DVT ppx Cont current pain medication
[2019-06-27] MEDS ORDERED: Morphine INJ* 2 MG/ML 1 ML SYRINGE (TWO MG - NEW SYRINGE VERSION) IV PRN (09:23)
[2019-06-27] MEDS ORDERED: traMADol TAB* 50 MG PO PRN (09:23)
[2019-06-27] MEDS: Apixaban* 2.5 MG TAB PO SCH ×2 (10:19→21:14)
[2019-06-27] MEDS: oxyCODONE TAB* 5 MG TAB PO PRN (10:19)
--- NOTE | 2019-06-27 16:47 | PN ---
Subjective Date of Service: 06/27/19 Interval History: Mr. Arzate states that R hip is "stiff." He rates pain at 6/10 currently. He was up with PT today, ambulating, walking up steps. He had a BM yesterday, is urinating without difficulty. He states he slept well last night, using CPAP. He has no other complaints today. Objective Active Medications: Acetaminophen (Tylenol Tab*) 975 mg PO Q8H YOBANY Apixaban (Eliquis*) 2.5 mg PO BID YOBANY Atorvastatin Calcium (Lipitor*) 10 mg PO QAM YOBANY; Protocol Bisacodyl (Dulcolax Supp*) 10 mg SD DAILY PRN Coenzyme Q10 (Coenzyme Q10 (Nf)) 1 cap PO QAM YOBANY Cyclobenzaprine HCl (Flexeril Tab*) 10 mg PO Q6H PRN Diphenhydramine HCl (Benadryl Iv*) 25 mg IV Q6H PRN Diphenhydramine HCl (Benadryl Po*) 25 mg PO Q6H PRN Docusate Sodium (Colace Cap*) 100 mg PO BID YOBANY Clindamycin HCl/Dextrose (Cleocin 600 Mg/50 Ml(*)) 600 mg in 50 mls @ 100 mls/ hr IV Q8H YOBANY Lactated Ringer's (Lactated Ringers 1000 Ml Bag*) 1,000 mls @ 100 mls/hr IV PER RATE YOBANY Lactulose (Lactulose*) 30 ml PO BID PRN Magnesium Hydroxide (Milk Of Magnesia Liq*) 30 ml PO BID YOBANY Magnesium Hydroxide (Milk Of Magnesia Liq*) 30 ml PO Q6H PRN Morphine Sulfate (Morphine Inj (Syringe))*) 2 mg IV Q2H PRN Multivitamins (Theragran Tab*) 1 tab PO DAILY YOBANY Ondansetron HCl (Zofran Inj*) 4 mg IV Q6H PRN Ondansetron HCl (Zofran Odt Tab*) 4 mg PO Q6H PRN Oxycodone HCl (Roxycodone Tab*) 5 mg PO Q4H PRN Oxycodone/Acetaminophen (Percocet 5/325 Tab*) 1 tab PO Q4H PRN Oxycodone/Acetaminophen (Percocet 5/325 Tab*) 2 tab PO Q4H PRN Tramadol HCl (Ultram*) 50 mg PO Q6H PRN Vital Signs: Temp Pulse Resp BP Pulse Ox 98.7 F 68 18 100/47 98 06/27/19 15:26 06/27/19 15:26 06/27/19 16:00 06/27/19 15:26 06/27/19 16:00 Oxygen Devices in Use Now: None Appearance: Pt is laying in bed with HOB elevated. He appears comfortable, in no acute distress. Eyes: No Scleral Icterus, PERRLA Ears/Nose/Mouth/Throat: NL Teeth, Lips, Gums, Clear Oropharnyx, Mucous Membranes Moist Neck: NL Appearance and Movements; NL JVP, Trachea Midline Respiratory: Symmetrical Chest Expansion and Respiratory Effort, Clear to Auscultation Cardiovascular: NL Sounds; No Murmurs; No JVD, RRR, No Edema Abdominal: NL Sounds; No Tenderness; No Distention, No Hepatosplenomegaly Extremities: No Edema, No Clubbing, Cyanosis, - - CDI dressing to right hip Neurological: Alert and Oriented x 3, NL Sensation, - - CN II-XII grossly intact Result Diagrams: 06/27/19 04:48 06/27/19 04:48 Assess/Plan/Problems-Billing Assessment: 64 yom PMHx HLD, MV replacement, AMAN presents for elective R SÁNCHEZ on 06/26/2019. - Patient Problems (1) Status post right hip replacement Comment: -POD 1 R SÁNCHEZ -Management per ortho -PT/OT -Pain management, bowel regimen (2) Apnea Comment: -Apnea in lizzy-operative/post-operative period -Likely result of sedation, opiate pain medication (reduced) -Resolved (3) Hyperlipidemia Comment: -Atorvastatin, CoQ 10 (4) AMAN (obstructive sleep apnea) Comment: -Continue CPAP at night (5) DVT prophylaxis Comment: -Apixaban, per ortho (6) Full code status Status and Disposition: Inpatient. Discharge per ortho.
[2019-06-28] MEDS: oxyCODONE/Acetamin 5/325 MG* TAB PO PRN ×3 (04:16→14:02)
[2019-06-28 05:52] LABS: Hematocrit 34 % (42-52); Hemoglobin 11.8 g/dL (14.0-18.0); Mean Platelet Volume 9.5 fL (7.4-10.4); Platelet Count 109 10^3/uL (150-450)
[2019-06-28] MEDS: Acetaminophen TAB* 325 MG PO SCH (08:10)
[2019-06-28] MEDS: Magnesium Hydroxide LIQ* 30 ML UDC PO SCH (08:16)
[2019-06-28] MEDS: Vitamin THERAPEUTIC TAB PO SCH (08:16)
[2019-06-28] MEDS: Docusate CAP* 100 MG PO SCH (08:16)
[2019-06-28] MEDS: Apixaban* 2.5 MG TAB PO SCH (08:16)
[2019-06-28] MEDS: Atorvastatin* 10 MG TAB PO SCH (08:16)
[2019-06-28] MEDS: COENZYME Q10 100 MG PO SCH (08:18)
--- NOTE | 2019-06-28 08:21 | PN ---
Progress Note - Progress Note Date of Service: 06/28/19 SOAP: Subjective: OOB to chair, no compaints, pain well controlled Objective: Vital Signs Temp Pulse Resp BP Pulse Ox 97.7 F 56 18 103/57 97 06/28/19 07:56 06/28/19 07:56 06/28/19 08:16 06/28/19 07:56 06/28/19 08:00 Laboratory Last Values WBC 10.6 10^3/uL (3.5-10.8) 06/26/19 22:30 RBC 4.56 10^6 /uL (4.18-5.48) 06/26/19 22:30 Hgb 11.8 g/dL (14.0-18.0) L 06/28/19 05:09 Hct 34 % (42-52) L 06/28/19 05:09 MCV 91 fL (80-94) 06/26/19 22:30 MCH 32 pg (27-31) H 06/26/19 22:30 MCHC 35 g/dL (31-36) 06/26/19 22:30 RDW 13 % (10-15) 06/26/19 22:30 Plt Count 109 10^3/uL (150-450) L 06/28/19 05:09 MPV 9.5 fL (7.4-10.4) 06/28/19 05:09 Neut % (Auto) 93.3 % 06/26/19 22:30 Lymph % (Auto) 4.7 % 06/26/19 22:30 [place] % (Auto) 1.8 % 06/26/19 22:30 Eos % (Auto) 0.1 % 06/26/19 22:30 Baso % (Auto) 0.1 % 06/26/19 22:30 Absolute Neuts (auto) 9.9 10^3/ul (1.5-7.7) H 06/26/19 22:30 Absolute Lymphs (auto) 0.5 10^3/ul (1.0-4.8) L 06/26/19 22:30 Absolute Monos (auto) 0.2 10^3/ul (0-0.8) 06/26/19 22:30 Absolute Eos (auto) 0.0 10^3/ul (0-0.6) 06/26/19 22:30 Absolute Basos (auto) 0.0 10^3/ul (0-0.2) 06/26/19 22:30 Absolute Nucleated RBC 0.0 10^3/ul 06/26/19 22:30 Nucleated RBC % 0.0 06/26/19 22:30 Patient Temperature Not Reportable 06/26/19 22:12 ABG pH 7.44 (7.35-7.45) 06/26/19 22:12 ABG pH (Temp Correct) Not Reportable 06/26/19 22:12 ABG pCO2 34 mmHg (35-45) L 06/26/19 22:12 ABG pCO2 (Temp Corrct Not Reportable 06/26/19 22:12 ABG pO2 74 mmHg (80-100) L 06/26/19 22:12 ABG pO2 (Temp Correct Not Reportable 06/26/19 22:12 ABG HCO3 24.5 mmol/L (19-31) 06/26/19 22:12 ABG O2 Saturation 96.2 % (94.0-98.0) 06/26/19 22:12 ABG Base Excess -0.5 mmol/L (-2.0-2.0) 06/26/19 22:12 Respiration Rate Not Reportable 06/26/19 22:12 O2 Delivery Device cpap 06/26/19 22:12 Ventilator Type Not Reportable 06/26/19 22:12 Vent Mode Not Reportable 06/26/19 22:12 FiO2 Not Reportable 06/26/19 22:12 Inspiratory Time Not Reportable 06/26/19 22:12 PEEP Not Reportable 06/26/19 22:12 Pressure Support Not Reportable 06/26/19 22:12 Pressure Control Not Reportable 06/26/19 22:12 EPAP Not Reportable 06/26/19 22:12 IPAP Not Reportable 06/26/19 22:12 BiPAP Not Reportable 06/26/19 22:12 Sodium 135 mmol/L (135-145) 06/27/19 04:48 Potassium 4.2 mmol/L (3.5-5.0) 06/27/19 04:48 Chloride 106 mmol/L (101-111) 06/27/19 04:48 Carbon Dioxide 23 mmol/L (22-32) 06/27/19 04:48 Anion Gap 6 mmol/L (2-11) 06/27/19 04:48 BUN 15 mg/dL (6-24) 06/27/19 04:48 Creatinine 0.76 mg/dL (0.67-1.17) 06/27/19 04:48 Est GFR ( Amer) 125.3 (>60) 06/27/19 04:48 Est GFR (Non-Af Amer) 103.6 (>60) 06/27/19 04:48 BUN/Creatinine Ratio 19.7 (8-20) 06/27/19 04:48 Glucose 143 mg/dL (70-100) H 06/27/19 04:48 Calcium 8.7 mg/dL (8.6-10.3) 06/27/19 04:48 incision: c/d; dressing changed PE: NVI Assessment: s/p right SÁNCHEZ; POD#2 Plan: 1) PT/OT- WBAT 2) continue Eliquis for DVT prophylaxis 3) Home today; f/u with Dr. Louie in 2 weeks
[2019-06-28] MEDS: oxyCODONE TAB* 5 MG TAB PO PRN (10:01)
--- NOTE | 2019-06-28 11:28 | DS ---
DATE OF ADMISSION: 06/26/2019. DATE OF DISCHARGE: 06/28/2219. ATTENDING SURGEON: Dr. Kasie Louie* (dictated by GENARO Garcia). PRINCIPAL DIAGNOSIS: Severe end-stage osteoarthritis right hip. DISCHARGE DIAGNOSIS: Severe end-stage osteoarthritis right hip. DISPOSITION: Discharged home in stable condition. HISTORY OF PRESENT ILLNESS: Mr. Arzate is a 64-year-old gentleman with complaints of right hip pain. He failed conservative treatment and elected to proceed with a right total hip arthroplasty. HOSPITAL COURSE: Mr. Arzate was admitted electively to the hospital on 2018 and underwent a right total hip arthroplasty for severe degenerative osteoarthritis of the right hip. He tolerated the procedure well. Postoperatively, he was placed on Eliquis twice a day for DVT prophylaxis. On postoperative day one, his H and H was 13 and 39. On postop day two, 11 and 34. At the time of discharge, his vital signs were stable. He was afebrile and he was ambulating well. DISCHARGE MEDICATIONS: 1. Percocet 5/325 one to two tabs every 4 to 6 hours as needed for pain. 2. Colace 100 mg tabs two to three daily for constipation. 3. Flexeril 10 mg tabs one every 8 hours as needed for spasms. 4. Eliquis 2.5 mg one tab twice a day for 4 weeks. 5. Lipitor 10 mg a day. 6. CoQ10. 7. Multivitamin. PHYSICAL EXAMINATION: He was afebrile. His vital signs were stable. His wound was clean and dry. He was ambulating well with the aid of a walker. He was able to dorsiflex and plantarflex. He has 2+ dorsalis pedis pulse. DISCHARGE INSTRUCTIONS: He was discharged home. He was given a prescription for pain, Colace for constipation, and Flexeril for muscle spasms. He was asked to take Eliquis 2.5 mg one tab twice a day for four weeks for DVT prophylaxis. He is weightbearing as tolerated. He will follow-up with Dr. Louie in two weeks. GENARO GARCIA [id number]/[facility] #: [id number] [facility]
[2019-06-28 11:48] VITALS: BP 104/56
[2019-06-28] MEDS ORDERED: Bisacodyl SUPP* 10 MG SUPP PR PRN (18:52)
== END 2019-06-28 14:22 | disposition home or self-care (01) | DRG 301 ==
LOC: AA 12:58 → SSU 23:25
PROVIDERS: ADMIT Orthopaedic Surgery Adult Reconstructive Orthopaedic Surgery; ATTEND Orthopaedic Surgery Adult Reconstructive Orthopaedic Surgery
PROC: 0SR904A Replacement of Right Hip Joint with Ceramic on Polyethylene Synthetic Substitute, Uncemented, Open Approach (ICD-10-PCS; principal; 2019-06-26 16:15)
DX: M16.11 Unilateral primary osteoarthritis, right hip (principal); E78.00 Pure hypercholesterolemia, unspecified; E78.2 Mixed hyperlipidemia; G47.33 Obstructive sleep apnea (adult) (pediatric); E66.9 Obesity, unspecified; G89.29 Other chronic pain; I08.2 Rheumatic disorders of both aortic and tricuspid valves; R06.81 Apnea, not elsewhere classified; Z87.891 Personal history of nicotine dependence; Z88.0 Allergy status to penicillin; Z88.1 Allergy status to other antibiotic agents; Z72.89 Other problems related to lifestyle; Z68.33 Body mass index [BMI] 33.0-33.9, adult; Z95.2 Presence of prosthetic heart valve
CPT/HCPCS: 36415; 36600; 80048; 82803; 85014; 85018; 85025; 85049; 88304; 88311; A9270-GY; C1713; C1776; G8987-GO-CJ; G8988-GO-CJ; G8989-GO-CJ; J1100; J2250; J2405; J2704; J2795; J3010

== ENCOUNTER 2019-07-02 02:27 | Emergency (ER) | payer OTHER ==
--- NOTE | 2019-07-02 03:44 | ED ---
Shortness of Breath - HPI Summary HPI Summary: Pt is a 64 y/o M presenting to the ED with a chief complaint of shortness of breath initially onset around 0000 this date. The pt had his hip replaced on and has been taking Oxycodone q6hrs since being d/lizeth. On 07/01/19, pts female friend states that he took an Oxycodone right before the shower, and when he got out of the shower he was very hot. Tonight, he took one around 2300 , and he woke up around 0000 very short of breath. He states the cool air helped him calm his breathing. He denies CP, edema, or pain in LE. - History of Current Complaint Chief Complaint: EDShortnessOfBreath Time Seen by Provider: 07/02/19 03:08 Hx Obtained From: Patient Onset/Duration: Sudden Onset, Lasting Minutes, Resolved Timing: Intermittent Episodes Lasting: Current Severity: Mild Dyspnea At: Rest Aggravating Factors: Nothing Associated Signs & Symptoms: Negative - Allergy/Home Medications Allergies/Adverse Reactions: Allergies Allergy/AdvReac Type Severity Reaction Status Date / Time erythromycin base Allergy Unknown Unknown Verified 07/02/19 04:32 Reaction Details Penicillins Allergy Unknown Unknown Verified 07/02/19 04:33 Reaction Details PMH/Surg Hx/FS Hx/Imm Hx Previously Healthy: Yes Endocrine/Hematology History: Reports: Hx Anticoagulant Therapy Cardiovascular History: Reports: Other Cardiovascular Problems/Disorders - atrial valve replacement Respiratory History: Reports: Hx Sleep Apnea Infectious Disease History: No Infectious Disease History: Denies: Traveled Outside the [place] in Last 30 Days - Family History Known Family History: Negative: Diabetes - Social History Alcohol Use: None Hx Substance Use: No Substance Use Type: Reports: None Hx Tobacco Use: No Smoking Status (MU): Never Smoked Tobacco Review of Systems Negative: Chest Pain Positive: Shortness Of Breath Negative: Myalgia, Edema All Other Systems Reviewed And Are Negative: Yes Physical Exam - Summary Physical Exam Summary: General: Well-developed, Well-nourished male. No acute distress. HEENT: Normocephalic, Atraumatic. Eyes: Conjuctiva normal, PERRL. Ears: TMs within normal limits. Nares: (-) discharge, (-) erythema. Oropharynx: Clear, mucous membranes moist, (-) exudates. Neck: Soft, FROM, (-) lymphadenopathy, (-) thyromegaly, (-) JVD. Cardiovascular: Normal sinus rhythm, (-) murmur. Lungs: Clear to auscultation bilaterally (-) wheezes, (-) rales, (-) rhonchi. Abdomen: Soft, non-tender, non-distended, (-) organomegaly, normal bowel sounds. Back: (-) CVA tenderness Extremities: No edema. Skin: Warm, dry, (-) rash. Neuro: Alert and oriented x3, no focal deficits. Psychiatric: Mood normal, affect normal. Triage Information Reviewed: Yes Vital Signs On Initial Exam: Initial Vitals Temp Pulse Resp BP Pulse Ox 98.7 F 63 15 123/67 96 07/02/19 02:29 07/02/19 02:29 07/02/19 02:29 07/02/19 02:29 07/02/19 02:29 Vital Signs Reviewed: Yes Procedures - Sedation Patient Received Moderate/Deep Sedation with Procedure: No Diagnostics - Vital Signs Vital Signs Temp Pulse Resp BP Pulse Ox 07/02/19 02:29 98.7 F 63 15 123/67 96 - Laboratory Result Diagrams: 07/02/19 04:43 07/02/19 04:43 Lab Statement: Any lab studies that have been ordered have been reviewed, and results considered in the medical decision making process. - Radiology CXR Radiology Interpretation Completed By: ED Physician Summary of Radiographic Findings: No infiltrate. No pleural effusion. Pending official radiology report. - EKG 0429 Cardiac Rate: NL - 61bpm EKG Rhythm: Sinus Rhythm ST Segment: Normal Ectopy: None Summary of EKG Findings: EKG at 0429 reveals normal sinus rhythm with rate of 61 BPM, no acute changes, no ischemic changes. This EKG was reviewed and interpreted by Dr. Mckeon. Re-Evaluation - Re-Evaluation 1st re-eval Re-Evaluation Time: 05:19 Change: Improved Comment: I have discussed results with the patient and shortness of breath is resolved. Discussed symptoms that warrant immediate return to ED. Course/Dx - Course Course Of Treatment: Pt is a 64 y/o M presenting to the ED with a chief complaint of shortness of breath initially onset around 0000 this date. The pt had his hip replaced on 06/26/19 and has been taking Oxycodone q6hrs since being d/lizeth. On 07/01/19, pts female friend states that he took an Oxycodone right before the shower, and when he got out of the shower he was very hot. Tonight, he took one around 2300, and he woke up around 0000 very short of breath. He denies CP, edema, or pain in LE. Pt's physical exam is nml. CXR shows: No infiltrate. No pleural effusion. Pending official radiology report. EKG at 0429 reveals normal sinus rhythm with rate of 61 BPM, no acute changes, no ischemic changes. This EKG was reviewed and interpreted by Dr. Mckeon. Pts lab results include RBC of 3.98, Hgb of 12.5, Hct of 37, INR of 1.16, Sodium of 134, AST of 61, and ALT of 75. As of 518, I have discussed results with the patient and shortness of breath is resolved. Discussed symptoms that warrant immediate return to ED. Pt will be d/c'ed with dx of shortness of breath. - Diagnoses Provider Diagnoses: SOB (shortness of breath) Discharge ED - Sign-Out/Discharge Documenting (check all that apply): Patient Departure - Discharge Plan Condition: Stable Disposition: HOME Patient Education Materials: Shortness of Breath (ED) Referrals: Kasie Louie MD [Primary Care Provider] - Additional Instructions: Please follow up with your primary care physician within three days. Please return to ED for any new or worsening symptoms. - Billing Disposition and Condition Condition: STABLE Disposition: Home - Attestation Statements Document Initiated by Chauibe: Yes Documenting Scribe: Jesika Valverde Provider For Whom [place] is Documenting (Include Credential): Sravani Mckeon MD. Scribe Attestation: I, Jesika Valverde, scribed for Sravani Mckeon MD. on 07/02/19 at 0608. Scribe Documentation Reviewed: Yes Provider Attestation: The documentation as recorded by the scribe, Jesika Valverde accurately reflects the service I personally performed and the decisions made by me, Sravani Mckeon MD. Status of Scribe Document: Viewed
[2019-07-02 04:49] LABS: ABS Eosinophils 0.3 10^3/ul (0-0.6); ABS Monocytes 0.8 10^3/ul (0-0.8); ABS Neutrophils 5.3 10^3/ul (1.5-7.7); Eosinophil % 3.4 %; Hematocrit 37 % (42-52); Hemoglobin 12.5 g/dL (14.0-18.0); Lymphocyte % 13.5 %; Mean Corpuscular HGB Conc 34 g/dL (31-36); Mean Corpuscular Hemoglobin 31 pg (27-31); Mean Corpuscular Volume 92 fL (80-94); Mean Platelet Volume 8.6 fL (7.4-10.4); Platelet Count 178 10^3/uL (150-450); Red Blood Count 3.98 10^6 /uL (4.18-5.48); Red Cell Distribution Width 13 % (10-15); White Blood Count 7.4 10^3/uL (3.5-10.8)
[2019-07-02 04:54] LABS: INR 1.16 (0.82-1.09)
[2019-07-02 05:08] LABS: Albumin 3.3 g/dL (3.2-5.2); Albumin/Globulin Ratio 1.1 (1-3); BUN/Creatinine Ratio 14.4 (8-20); Calcium 8.8 mg/dL (8.6-10.3); EGFR African American 94.6 (>60); EGFR Non-African American 78.2 (>60); Globulin 2.9 g/dL (2-4); Potassium 4.6 mmol/L (3.5-5.0); Total Bilirubin 0.9 mg/dL (0.2-1.0); Total Protein 6.2 g/dL (6.4-8.9)
[2019-07-02 05:44] VITALS: BP 108/63
== END 2019-07-02 05:43 | disposition home or self-care (01) ==
LOC: EDBD → MERGE 02:27 → ED 02:27
DX: R06.02 Shortness of breath (principal); Z79.01 Long term (current) use of anticoagulants; Z88.0 Allergy status to penicillin
CPT/HCPCS: 36415; 71045; 80053; 83880; 84484; 85025; 85610; 93005; 99282